=== PATIENT | male | born 1980 | race Caucasian/White ===

== ENCOUNTER 2017-12-13 11:38 | Emergency (ER) | payer OTHER ==
[~2017-12-13] VITALS: Ht 182.9 cm; Wt 79.5 kg
[2017-12-13 11:48] VITALS: TEMP 97.7
[2017-12-13 12:12] LABS: COLLECTION METHOD CLEAN CATCH
[2017-12-13 12:22] LABS: MUCOUS Present /lpf; PH 5 (5-8); SQUAMOUS EPITHELIAL 0-2 /hpf; URINE APPEARANCE Clear; URINE BACTERIA None Seen /hpf; URINE BILIRUBIN Negative (NEGATIVE); URINE BLOOD Negative (NEGATIVE); URINE COLOR Yellow; URINE GLUCOSE Negative (NEGATIVE); URINE KETONE Negative (NEGATIVE); URINE LEUKOCYTE ESTERASE Negative (NEGATIVE); URINE NITRATE Negative (NEGATIVE); URINE PROTEIN(semi-quant) Negative (NEGATIVE); URINE RBC 0-2 /hpf; URINE UROBILINOGEN Negative (NEGATIVE)
[2017-12-13] MEDS ORDERED: DOXYCYCLINE 10100 MG PO (13:01)
[2017-12-13] MEDS ORDERED: NORCO 325 MG-51 TAB PO (13:01)
[2017-12-13 13:20] VITALS: BP 112/82; PULSE 89
[2017-12-15] MEDS ORDERED: ZITHROMAX 250M250 MG PO (18:12)
[2017-12-15] MEDS ORDERED: ZOFRAN 4MG T4 MG/TAB PO (18:12)
== END 2017-12-13 13:20 | disposition home or self-care (01) ==
LOC: COL.ER 11:38
PROVIDERS: Physician Assistant
DX: N45.1 Epididymitis (principal); N43.3 Hydrocele, unspecified; Z87.442 Personal history of urinary calculi